=== PATIENT | female | born 1945 ===

== ENCOUNTER 2018-04-03 10:00 | Emergency (ER) | payer MEDICARE, MEDICAID ==
[2018-04-03 10:12] VITALS: O2SAT 98
--- NOTE | 2018-04-03 11:13 | C.PDOC ---
History Of Present Illness 72 year old female presents to the emergency department with complaints of intermittent headaches persisting for the last month. Patient reports her headache is located at her anterior and left parietal region. Patient reports that she visited her PMD Dr. Sissy Sherwood who noticed that her blood sugar was elevated, and she was referred to a diabetic specialist. The diabetic specialist noticed that her triglycerides were elevated, so the patient was prescribed Pravastatin and told to take fish oil. Currently the patient is asymptomatic, but when her symptoms appear the patient's headache is a 6/10 in severity, with associated bilateral shoulder pain with paresthesia to her hands and feet. She denies fever, chills, nausea, vomiting, shortness of breath, chest pain, diarrhea, rhinorrhea, and cough. Time Seen by Provider: 04/03/18 10:47 Chief Complaint (Nursing): Headache History Per: Patient History/Exam Limitations: no limitations Onset/Duration Of Symptoms: Intermittent Episodes (headache) Current Symptoms Are (Timing): Still Present Pain Scale Rating Of: 6 Quality: Aching, "Pain" Associated Symptoms: Other (bilateral shoulder pain, paresthesia to extremities) . denies: Nausea, Vomiting Past Medical History Reviewed: Historical Data, Nursing Documentation, Vital Signs Vital Signs: Last Vital Signs Temp 98 F 04/03/18 12:21 Pulse 76 04/03/18 12:21 Resp 18 04/03/18 12:21 BP 160/73 H 04/03/18 12:21 Pulse Ox 98 04/03/18 12:21 - Medical History PMH: Arthritis, HTN, Hypercholesterolemia Surgical History: No Surg Hx Family History: States: No Known Family Hx - Social History Hx Alcohol Use: No Hx Substance Use: No - Immunization History Hx Tetanus Toxoid Vaccination: No Hx Influenza Vaccination: No Hx Pneumococcal Vaccination: No Review Of Systems Except As Marked, All Systems Reviewed And Found Negative. Constitutional: Negative for: Fever, Chills ENT: Negative for: Nose Discharge Cardiovascular: Negative for: Chest Pain Respiratory: Negative for: Cough, Shortness of Breath Gastrointestinal: Negative for: Nausea, Vomiting, Diarrhea Musculoskeletal: Positive for: Shoulder Pain (bilateral) Neurological: Positive for: Headache, Other (paresthesia to extremities) Physical Exam - Physical Exam Appears: Non-toxic, No Acute Distress Skin: Warm, Dry Head: Atraumatic, Normacephalic Eye(s): bilateral: Normal Inspection Nose: Normal Neck: Normal, Supple Chest: Symmetrical, No Tenderness Cardiovascular: Rhythm Regular, No Murmur Respiratory: Normal Breath Sounds, No Rales, No Rhonchi, No Wheezing Gastrointestinal/Abdominal: Normal Exam, Soft, No Tenderness, No Guarding, No Rebound Back: Normal Inspection Extremity: Normal ROM, No Tenderness Neurological/Psych: Oriented x3, Normal Speech, Normal Cognition, Normal Sensation, Normal Reflexes, Other (no focal deficits, neurologically intact, no facial droop) ED Course And Treatment O2 Sat by Pulse Oximetry: 98 (RA) Pulse Ox Interpretation: Normal Medical Decision Making Medical Decision Makin:[address] Sherwood' JEN Gonzalez, who suggested no urgent management is needed at this time but the patient is requested to follow up with a neurologist for her symptoms. Disposition Doctor Will See Patient In The: Office Counseled Patient/Family Regarding: Studies Performed, Diagnosis, Need For Followup - Disposition Referrals: Sissy Sherwood MD [Medical Doctor] - Tami Stauffer MD [Staff Provider] - Disposition: HOME/ ROUTINE Disposition Time: 11:42 Condition: STABLE Additional Instructions: Please follow up with Dr. Sherwood on Thursday. You may be referred to a Neurologist. Follow up with our neurologist if you prefer. Instructions: Headache, Adult Forms: [facility] ([place]an), General Discharge Instructions - Clinical Impression Clinical Impression: Headache - Scribe Statement The provider has reviewed the documentation as recorded by the Scribe (Duke Gilmore) Provider Attestation: All medical record entries made by the Scribe were at my direction and personally dictated by me. I have reviewed the chart and agree that the record accurately reflects my personal performance of the history, physical exam, medical decision making, and the department course for this patient. I have also personally directed, reviewed, and agree with the discharge instructions and disposition.
[2018-04-03 12:22] VITALS: BP 160/73; PULSE 76; RESP 18; TEMP 98
== END 2018-04-03 12:22 | disposition home or self-care (01) ==
LOC: C.ER 10:00
DX: R51 Headache (principal); E78.00 Pure hypercholesterolemia, unspecified; I10 Essential (primary) hypertension

== ENCOUNTER 2018-11-03 10:26 | Emergency (ER) | payer MEDICARE, MEDICAID ==
[2018-11-03 10:42] VITALS: BMI 19.9
--- NOTE | 2018-11-03 11:30 | C.PDOC ---
History Of Present Illness 73 y/o female presents to the ER complaining of mid back pain which has been present for the past 2 months. Patient states that the pain radiates up and down her back and is constant. She has been taking NSAIDS, Lyrica, and muscle relaxants with transient relief. Patient had an X-Ray done on 09/20/18 which was "negative". She denies falls/injuries, rashes, fever, chills, cough, CP, SOB, nausea, vomiting, diarrhea, abdominal pain. Time Seen by Provider: 11/03/18 10:45 Chief Complaint (Nursing): Back Pain History Per: Patient History/Exam Limitations: no limitations Onset/Duration Of Symptoms: Days Current Symptoms Are (Timing): Still Present Quality Of Discomfort: "Pain" Severity: Moderate Past Medical History Reviewed: Historical Data, Nursing Documentation, Vital Signs Vital Signs: Last Vital Signs Temp 99 F 11/03/18 10:42 Pulse 113 H 11/03/18 10:42 Resp 20 11/03/18 10:42 BP 115/70 11/03/18 10:42 Pulse Ox 99 11/03/18 10:42 - Medical History PMH: Arthritis, HTN, Hypercholesterolemia Other Surgeries: Hx of surgeries Family History: States: No Known Family Hx - Social History Hx Alcohol Use: No Hx Substance Use: No - Immunization History Hx Tetanus Toxoid Vaccination: No Hx Influenza Vaccination: No Hx Pneumococcal Vaccination: No Review Of Systems Constitutional: Negative for: Fever, Chills Cardiovascular: Negative for: Chest Pain, Palpitations Respiratory: Negative for: Cough, Shortness of Breath Gastrointestinal: Negative for: Nausea, Vomiting, Abdominal Pain, Diarrhea Musculoskeletal: Positive for: Back Pain Skin: Negative for: Rash Neurological: Negative for: Weakness, Numbness Physical Exam - Physical Exam Appears: Well, Non-toxic, Other (in mild pain ) Skin: Normal Color, Warm, Dry, No Rash Head: Atraumatic, Normacephalic Eye(s): bilateral: Normal Inspection Oral Mucosa: Moist Neck: Normal, Normal ROM, No Midline Cervical Tenderness, No Paracervical Tenderness, No Step Off Deformity, Supple Chest: Symmetrical, No Tenderness Cardiovascular: Rhythm Regular Respiratory: Normal Breath Sounds, No Rales, No Rhonchi, No Wheezing Gastrointestinal/Abdominal: Normal Exam, Bowel Sounds, Soft, No Tenderness, No Guarding, No Rebound Back: No CVA Tenderness, Other (tenderness to palpiation at lower thoracic and upper lumbar spine approx T10 - L1 levels) Extremity: Normal ROM, No Pedal Edema, No Calf Tenderness Extremity: Bilateral: Atraumatic, Normal Color And Temperature, Normal ROM Neurological/Psych: Oriented x3, Normal Motor, Normal Sensation Gait: Steady ED Course And Treatment - Laboratory Results Result Diagrams: 11/03/18 12:31 11/03/18 12:31 O2 Sat by Pulse Oximetry: 99 (RA) Pulse Ox Interpretation: Normal - Other Rad CT thoacic spine X-Ray: Read By Radiologist Interpretation: Accession No. : [id number]. Patient Name / ID : DAMIÁN EARLY / [id number]. Exam Date : 11/03/2018 12:05:59 ( Approved ). Study Comment : Sex / Age : F / 73Y. Creator : Tam Centeno MD. Dictator : Tam Centeno MD. Residential Sales Rep : Distribution Operations Supervisor : Tam Centeno MD. Approver2 : Report Date : 11/03/2018 14:43:48. My Comment : . Date of service: 11/03/2018. PROCEDURE: CT Thoracic Spine without contrast. HISTORY: SEVERE BACK PAIN. COMPARISON: None available. TECHNIQUE: Axial computed tomography images were obtained of the thoracic spine without intravenous contrast. Coronal and sagittal reformatted images were created and reviewed. Radiation dose: Total exam DLP = 279.8 mGy-cm. This CT exam was performed using one or more of the following dose reduction techniques: Automated exposure control, adjustment of the mA and/or kV according to patient size, and/or use of iterative reconstruction technique. FINDINGS: VERTEBRAE: Unremarkable. No fracture. Normal alignment. There is 0.85 millimeter sclerotic bony lesion at the left anterior aspect of T12 may represent benign bone lesion. No evidence of cortical destruction. DISCS/SPINAL CANAL/NEURAL FORAMINA: There are moderate degenerative disc and endplate changes. There are multilevel posterior osteophyte bulging disc complex seen at the thoracic spine more prominent at T5-T6 which resulting in mild to moderate spinal stenosis. PARASPINAL SOFT TISSUES: Unremarkable. OTHER FINDINGS: Unremarkable. IMPRESSION: Moderate disc and endplate degenerative changes associated with multilevel posterior osteophyte bulging disc complex more prominent at T5-T6 which resulting in multilevel [id number]-lzicdtsa spinal stenosis. 0.85 centimeter sclerotic bony lesion at the anterior aspect of T12 with well-defined border and no evidence of adjacent cortical destruction. Findings may represent benign bone lesion such as bone island. - CT Scan/US CT-Lumbar Spine Other Rad Studies (CT/US): Read By Radiologist, Radiology Report Reviewed CT/US Interpretation: Date of service: 11/03/2018. CT lumbar spine without IV contrast. Indication: SEVERE BACK PAIN. Comparison: None available. Technique: Noncontrast axial images of the lumbar spine were provided. Sagittal and coronal reformatted images were generated and reviewed. This CT exam was performed using 1 or more of the following dose reduction techniques: Automated exposure control, adjustment of the MAA and/or kV according to patient size, and/or use of iterative reconstruction technique. Total exam DLP: 279.85 MGy- cm. Findings: Diffuse osseous demineralization limits evaluation for acute f racture lines. Mild degenerative changes including small osteophyte formation. 6 mm sclerotic focus within the T12 vertebral body, possibly bone island. Vertebral body heights appear within normal limits. Alignment appears satisfactory. No acute fracture or subluxation identified. Evidence of posterior disc bulge at L4-L5. Paraspinal soft tissues appear unremarkable. Atherosclerotic calcifications of the aorta. Limited visualization of the intra-abdominal and intrapelvic contents appear unremarkable. Impression: No acute fracture or subluxation identified. Osseous demineralization. Degenerative changes. 6 mm sclerotic focus within the T12 vertebral body, possibly bone island. Evidence of posterior disc bulge at L4-L5. Atherosclerotic calcifications of the aorta. Progress Note: Blood work, UA, CT scans of thoracic and LS spine ordered and reviewed. Patient given IV NS bolus, IV Toradol. Reevaluation Time: 15:00 Reassessment Condition: Improved (On reassessment, patient reports improvement of pain and states he feels better. He is able to ambulate normally in the ED. Results of CT scans given and explained to patien. Rxs for Naprosyn and Valium given. Patient instructed to follow up with PMD/medical clinic in 1-2 days, and with neurology as scheduled. He understands he should return to ED if symptoms worsen.) Disposition Counseled Patient/Family Regarding: Studies Performed, Diagnosis, Need For Followup, Rx Given - Disposition Referrals: [facility] [Outside] Disposition: HOME/ ROUTINE Disposition Time: 15:00 Condition: STABLE Additional Instructions: FOLLOW UP WITH NEUROLOGY SCHEDULED USE PAIN MEDICATION NEEDED RETURN TO ER IF SYMPTOMS WORSEN Prescriptions: Diazepam [Valium] 2 mg PO BID PRN #14 tablet PRN Reason: musle spasm Naproxen [Naprosyn] 1 tab PO BID PRN #25 tab PRN Reason: Pain Instructions: Herniated Disc (DC) Forms: [employer] (Portuguese) Print Language: ISRAELI - Clinical Impression Clinical Impression: Thoracic disc herniation, Lumbar disc herniation - Scribe Statement The provider has reviewed the documentation as recorded by the Kim Espinosa Provider Attestation: All medical record entries made by the Kim were at my direction and personally dictated by me. I have reviewed the chart and agree that the record accurately reflects my personal performance of the history, physical exam, medical decision making, and the department course for this patient. I have also personally directed, reviewed, and agree with the discharge instructions and disposition.
[2018-11-03 12:36] LABS: BASO # 0.1 K/uL (0.0-0.2); BASO % 0.7 % (0.0-2.0); EOS # 0.2 K/uL (0.0-0.7); EOS % 2.2 % (0.0-4.0); HEMOGLOBIN 11.4 g/dL (11.0-16.0); LYMPH # 3.2 K/uL (1.0-4.3); LYMPH % 35.9 % (20.0-40.0); MEAN CELL VOLUME 87.2 fL (81.0-99.0); MEAN CORPUSCULAR HEMOGLOBIN 28.6 pg (27.0-31.0); MEAN CORPUSCULAR HGB CONC 32.8 g/dL (33.0-37.0); MEAN PLATELET VOLUME 7.8 fL (7.2-11.7); MONO # 0.6 K/uL (0.0-0.8); MONO % 6.7 % (0.0-10.0); NEUT # 4.9 K/uL (1.8-7.0); NEUT % 54.5 % (50.0-75.0); RBC 3.99 Mil/uL (3.80-5.20); RED CELL DISTRIBUTION WIDTH 13.3 % (11.5-14.5); WHITE BLOOD COUNT 8.9 K/uL (4.8-10.8)
[2018-11-03] MEDS ORDERED: Sodium Chloride 0.9% 500 ML IV ONE ×2 (12:48→13:27)
[2018-11-03 12:51] LABS: ALB/GLOB RATIO 1.5 (1.0-2.1); ALBUMIN 4.3 g/dL (3.5-5.0); ALT/SGPT 23 U/L (9-52); AST/SGOT 20 U/L (14-36); BLOOD UREA NITROGEN 30 mg/dL (7-17); CALCIUM 8.7 mg/dl (8.6-10.4); GFR NON-AFRICAN AMERICAN > 60; LIPASE 187 U/L (23-300)
--- NOTE | 2018-11-03 12:57 | CT ---
Date of service: 11/03/2018 CT lumbar spine without IV contrast Indication: SEVERE BACK PAIN Comparison: None available Technique: Noncontrast axial images of the lumbar spine were provided. Sagittal and coronal reformatted images were generated and reviewed. This CT exam was performed using 1 or more of the following dose reduction techniques: Automated exposure control, adjustment of the MAA and/or kV according to patient size, and/or use of iterative reconstruction technique. Total exam DLP: 279.85 MGy-cm Findings: Diffuse osseous demineralization limits evaluation for acute fracture lines. Mild degenerative changes including small osteophyte formation. 6 mm sclerotic focus within the T12 vertebral body, possibly bone island. Vertebral body heights appear within normal limits. Alignment appears satisfactory. No acute fracture or subluxation identified. Evidence of posterior disc bulge at L4-L5. Paraspinal soft tissues appear unremarkable. Atherosclerotic calcifications of the aorta. Limited visualization of the intra-abdominal and intrapelvic contents appear unremarkable. Impression: No acute fracture or subluxation identified. Osseous demineralization. Degenerative changes. 6 mm sclerotic focus within the T12 vertebral body, possibly bone island. Evidence of posterior disc bulge at L4-L5. Atherosclerotic calcifications of the aorta.
[2018-11-03 13:17] LABS: SQUAMOUS EPITHIAL 5 /hpf (0-5); URINE BACTERIA OCC (<OCC); URINE BILIRUBIN NEGATIVE (NEGATIVE); URINE BLOOD NEGATIVE (NEGATIVE); URINE CLARITY Clear (Clear); URINE COLOR Yellow (YELLOW); URINE GLUCOSE (UA) 2+ mg/dL (Normal); URINE LEUKOCYTE ESTERASE 3+ Leu/uL (Negative); URINE PROTEIN NEGATIVE (NEGATIVE); URINE UROBILINOGEN NORMAL mg/dL (0.2-1.0)
[2018-11-03] MEDS ORDERED: Sodium Chloride 0.9% 0 ML ONE (13:20)
[2018-11-03 14:09] VITALS: TEMP 97.9
--- NOTE | 2018-11-03 14:47 | CT ---
Date of service: 11/03/2018 PROCEDURE: CT Thoracic Spine without contrast HISTORY: SEVERE BACK PAIN COMPARISON: None available. TECHNIQUE: Axial computed tomography images were obtained of the thoracic spine without intravenous contrast. Coronal and sagittal reformatted images were created and reviewed. Radiation dose: Total exam DLP = 279.8 mGy-cm. This CT exam was performed using one or more of the following dose reduction techniques: Automated exposure control, adjustment of the mA and/or kV according to patient size, and/or use of iterative reconstruction technique. FINDINGS: VERTEBRAE: Unremarkable. No fracture. Normal alignment. There is 0.85 millimeter sclerotic bony lesion at the left anterior aspect of T12 may represent benign bone lesion. No evidence of cortical destruction. DISCS/SPINAL CANAL/NEURAL FORAMINA: There are moderate degenerative disc and endplate changes. There are multilevel posterior osteophyte bulging disc complex seen at the thoracic spine more prominent at T5-T6 which resulting in mild to moderate spinal stenosis. PARASPINAL SOFT TISSUES: Unremarkable. OTHER FINDINGS: Unremarkable. IMPRESSION: Moderate disc and endplate degenerative changes associated with multilevel posterior osteophyte bulging disc complex more prominent at T5-T6 which resulting in multilevel chgj-mj-txynhage spinal stenosis. 0.85 centimeter sclerotic bony lesion at the anterior aspect of T12 with well-defined border and no evidence of adjacent cortical destruction. Findings may represent benign bone lesion such as bone island.
[2018-11-03 15:41] VITALS: BP 110/59; PULSE 104; RESP 22
[2018-11-09 23:39] VITALS: O2SAT 99
== END 2018-11-03 15:41 | disposition home or self-care (01) ==
LOC: C.ER 10:26
DX: M51.24 Other intervertebral disc displacement, thoracic region (principal); M51.26 Other intervertebral disc displacement, lumbar region
CPT/HCPCS: 72128; 72131; 80053; 81001; 83690; 85025; 96374; 99284; J1885; J7040